=== PATIENT | female | born 1980 | race Hispanic/Latino ===

== ENCOUNTER 2018-04-14 22:26 | Inpatient (IN) | payer SELFPAY ==
[2018-04-14] MEDS ORDERED: NA CHLORIDE 0.9% 1,000 ML ONE (22:59)
[2018-04-14] MEDS ORDERED: FENTANYL CITR 100 MCG/2 ML ONE (23:21)
[2018-04-14 23:54] LABS: Absolute Lymphocytes (CBC) 0.5 K/uL (0.7-4.9); Absolute Monocytes 0.5 K/uL (0.1-1.3); Absolute Neutrophil 8.5 K/uL (1.8-8.0); Basophils % 0.5 % (0-1.3); Eosinophils % 1.3 % (0-4.4); Hematocrit 33.4 % (36.0-45.0); Lymphocytes % 5.1 % (15.3-44.8); MCV 88.4 fL (80-100); MPV 9.9 fL (7.6-11.3); Monocytes % 5.5 % (3.3-12.3); RBC Red Blood Cell Count 3.78 M/uL (3.86-4.86)
[2018-04-15] LABS: Potassium 4.5 mmol/L (3.5-5.1)
[2018-04-15 00:11] LABS: Urine Bacteria LOADED /HPF (<20); Urine Culture Reflex Order NOT NEEDED
[2018-04-15 00:12] LABS: Urine RBC <5 /HPF (NONE SEEN)
[2018-04-15] MEDS ORDERED: INSULIN -REGULAR HUMAN 50 UNIT/0.5 ML ML ONE (00:26)
[2018-04-15] MEDS ORDERED: CEFTRIAXONE/SWI 1gm 1 GM/10 ML SYR ONE (00:27)
[2018-04-15 00:29] LABS: Blood Morphology Comment NOT SEEN (NOT SEEN); Platelet Estimate ADEQ
[2018-04-15] MEDS ORDERED: NA CHLORIDE 0.9% 1,000 ML ONE (01:04)
[2018-04-15] MEDS ORDERED: ACETAMINOPHEN 500 MG TAB ONE (01:06)
--- NOTE | 2018-04-15 02:16 | ER ---
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 Transition of care: patient was not received from another setting of care. Onset of symptoms is unknown. Risk Assessment: Do you want to hurt yourself or someone else? Patient reports no desire to harm self or others. Initial Sepsis Screen:. Care prior to arrival: None. 22:50 Method Of Arrival: Wheelchair [facility] 22:50 Acuity: [facility] 04/15 01:06 Initial Sepsis Screen: Does the patient meet any 2 criteria? Temp <36.0*C (96.8*F)) or mg2 > 38.3*C (100.4*F). HR > 90 bpm. Yes Does the patient have a suspected source of infection? Yes: Dysuria/Frequency/Urgency/UTI. Triage Assessment: 04/14 22:51 General: Appears in no apparent distress. Behavior is calm, cooperative. ak1 04/15 01:08 Pain: Pain began gradually. mg2 01:11 Headache History: The patient has had previous headaches and this one is similar to mg2 previous episodes. Pain: Complains of pain in head, abdomen Also complains of no other associated symptoms. 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 - Social history:: Smoking status: Patient/guardian denies using tobacco. - Ebola Screening: : No symptoms or risks identified at this time. Screenin:06 Abuse screen: Denies threats or abuse. Denies injuries from another. Nutritional mg2 screening: No deficits noted. Tuberculosis screening: No symptoms or risk factors identified. Fall Risk IV access (20 points). Assessment: 22:50 General: Appears distressed, uncomfortable, well groomed, well developed, well tl3 nourished, Behavior is cooperative, appropriate for age, anxious. Pain: Complains of pain in right lower quadrant and left lower quadrant Pain at worst was 10 out of 10 on a pain scale. Neuro: Level of Consciousness is awake, alert, obeys commands, Oriented to person, place, time, situation, Appropriate for age. Cardiovascular: Heart tones S1 S2 present Patient's skin is warm and dry. Respiratory: Airway is patent Respiratory effort is even, unlabored, Respiratory pattern is regular, symmetrical, Breath sounds are clear bilaterally. GI: No signs and/or symptoms were reported involving the gastrointestinal system. : Bradley in place Urine is clear, Reports cramping, in bilateral lower quadrant(s) since 4 months. EENT: No signs and/or symptoms were reported regarding the EENT system. Derm: No signs and/or symptoms reported regarding the dermatologic system. Musculoskeletal: No signs and/or symptoms reported regarding the musculoskeletal system. 23:40 Reassessment: Patient appears in no apparent distress at this time. No changes from tl3 previously documented assessment. Patient and/or family updated on plan of care and expected duration. Pain level reassessed. Patient is alert, oriented x 3, equal unlabored respirations, skin warm/dry/pink. 04/15 00:36 Reassessment: Patient appears in no apparent distress at this time. No changes from tl3 previously documented assessment. Patient and/or family updated on plan of care and expected duration. Pain level reassessed. Patient is alert, oriented x 3, equal unlabored respirations, skin warm/dry/pink. 01:06 Reassessment: Patient appears in no apparent distress at this time. No changes from tl3 previously documented assessment. Patient and/or family updated on plan of care and expected duration. Pain level reassessed. Patient is alert, oriented x 3, equal unlabored respirations, skin warm/dry/pink. 02:06 Reassessment: Patient appears in no apparent distress at this time. Patient and/or mg2 family updated on plan of care and expected duration. Pain level reassessed. Patient is alert, oriented x 3, equal unlabored respirations, skin warm/dry/pink. Vital Signs: 04/14 22:49 BP 174 / 92; Pulse 123; Resp 16; Temp 100.2(O); Pulse Ox 98% on R/A; Weight 58.97 kg ak1 (R); Height 5 ft. 4 in. (162.56 cm); Pain 8/10; 23:40 BP 143 / 75; Pulse 122; Resp 18; Pulse Ox 96% ; tl3 04/15 00:36 BP 145 / 77; Pulse 119; Resp 18; Pulse Ox 95% ; tl3 01:05 Temp 100.4; tl3 01:06 BP 128 / 77; Pulse 119; Resp 16; Pulse Ox 98% ; tl3 02:05 BP 143 / 83; Pulse 116; Resp 18; Temp 100.4(O); Pulse Ox 96% ; Pain 5/10; mg2 04/14 22:49 Body Mass Index 22.31 (58.97 kg, 162.56 cm) ak1 ED Course: 04/14 22:29 Patient arrived in ED. do 22:49 Arm band placed on Patient placed in an exam room, on a stretcher, Patient notified of ak1 wait time. 22:50 Luna Díaz RN is Primary Nurse. tl3 22:50 Patient has correct armband on for positive identification. Bed in low position. Call tl3 light in reach. Side rails up X 1. Adult w/ patient. Pulse ox on. NIBP on. Warm blanket given. 22:50 No provider procedures requiring assistance completed. tl3 22:50 Straight cath inserted, using sterile technique, 8 fr pedi cath used Returned clear tl3 yellow urine. 22:51 Triage completed. ak1 22:51 Kenna Cary FNP-C is PHCP. snw 22:51 Madi Johnson MD is Attending Physician. snw 23:06 Inserted saline lock: 22 gauge by PAT Carrasco. mg2 04/15 00:29 Notified Nurse Practitioner and/or Physician Workplace Trainer And Assessor of a critical lab result(s), fc bands of 20%. 02:14 Adilene Saleem MD is Hospitalizing Provider. snw 02:47 Patient admitted, IV remains in place. mg2 Administered Medications: 04/14 23:07 Drug: NS 0.9% 1000 ml Route: IV; Rate: 1 bolus; Site: left antecubital; mg2 04/15 00:35 Follow up: IV Status: Completed infusion; IV Intake: 1000ml tl3 04/14 23:19 Drug: fentaNYL (PF) 25 mcg Route: IVP; Site: left antecubital; mg2 23:41 Follow up: Response: No adverse reaction; Pain is decreased tl3 04/15 00:26 Drug: Rocephin - (cefTRIAXone) 1 grams Route: IVPB; Infused Over: 5 mins; Site: left tl3 antecubital; Delivery: Primary tubing; 00:34 Follow up: IV Status: Completed infusion; IV Intake: 20ml tl3 00:32 Drug: Insulin Regular Human 5 units {Co-Signature: mg2 (Deni Bond RN).} Route: tl3 IVP; Site: left antecubital; 02:04 Follow up: Response: No adverse reaction; Blood sugar is lowered mg2 00:59 Drug: NS 0.9% 1000 ml Route: IV; Rate: 1 bolus; Site: left antecubital; Delivery: tl3 Primary tubing; 02:04 Follow up: Response: No adverse reaction; IV Status: Completed infusion mg2 01:06 Drug: Tylenol 1000 mg Route: PO; mg2 02:03 Follow up: Response: No adverse reaction; Temperature is unchanged mg2 02:26 Drug: morphine 2 mg Route: IVP; Site: left antecubital; mg2 02:48 Follow up: Response: No adverse reaction; Pain is decreased mg2 Point of Care Testing: Blood Glucose: 01:05 Blood Glucose: 357 mg/dL; tl3 02:05 Blood Glucose: 367 mg/dL; mg2 Ranges: Intake: 00:34 IV: 20ml; Total: 20ml. tl3 00:35 IV: 1000ml; Total: 1020ml. tl3 Outcome: 02:15 Decision to Hospitalize by Provider. snw 02:47 Admitted to Tele accompanied by nurse, via wheelchair, room 426, with chart, Report mg2 called to RN Glenys 02:47 Condition: stable 02:47 Instructed on the need for admit, Demonstrated understanding of instructions. 02:59 Patient left the ED. mg2 Signatures: Kenna Cary, MARINE RIGGER-C MARINE RIGGER-Csnw Isabel Caldera RN RN fc Krenek, Amber, RN RN [email or web address] Gemma Adams Tammy, RN RN tl3 Ronda, Deni, RN RN mg2 Deni Bond RN mg2
--- NOTE | 2018-04-15 02:16 | EDPHYS ---
Physician Documentation [facility] Name: Kacey Mcknight Age: 37 yrs Sex: Female : 1980 Arrival Date: 04/14/2018 Time: 22:29 Bed 23 Private MD: ED Physician Madi Johnson HPI: 04/14 23:26 This 37 yrs old Female presents to ER via Wheelchair with complaints of Fever, snw Headache, "Ovary Pain". 23:26 The patient reports fever, not measured (subjective). Onset: The symptoms/episode snw began/occurred suddenly, 3 day(s) ago. Modifying factors: there are no obvious modifying factors. Associated signs and symptoms: Pertinent positives: "ovary pain". Severity of symptoms: At their worst the symptoms were moderate 3 day(s) ago, in the emergency department the symptoms are unchanged. pt c/o ovarian pain x 4 months, saw PCP in [place] 2 months ago who recommended US, pt has not gotten one done. 2 months ago. 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 - Social history:: Smoking status: Patient/guardian denies using tobacco. - Ebola Screening: : No symptoms or risks identified at this time. ROS: 23:34 Eyes: Negative for injury, pain, redness, and discharge, ENT: Negative for injury, snw pain, and discharge, Neck: Negative for injury, pain, and swelling. 23:34 Respiratory: Negative for shortness of breath, cough, wheezing, and pleuritic chest pain, Abdomen/GI: Negative for abdominal pain, nausea, vomiting, diarrhea, and constipation, Back: Negative for injury and pain, : Negative for injury, bleeding, discharge, and swelling, MS/Extremity: Negative for injury and deformity, Skin: Negative for injury, rash, and discoloration, Neuro: Negative for weakness, numbness, tingling, and seizure, + headache 23:34 Constitutional: Positive for fever, malaise. 23:34 Cardiovascular: Positive for palpitations. Exam: 23:35 Head/Face: Normocephalic, atraumatic. Eyes: Pupils equal round and reactive to light, snw extra-ocular motions intact. Lids and lashes normal. Conjunctiva and sclera are non-icteric and not injected. Cornea within normal limits. Periorbital areas with no swelling, redness, or edema. ENT: Nares patent. No nasal discharge, no septal abnormalities noted. Tympanic membranes are normal and external auditory canals are clear. Oropharynx with no redness, swelling, or masses, exudates, or evidence of obstruction, uvula midline. Mucous membranes moist. Neck: Trachea midline, no thyromegaly or masses palpated, and no cervical lymphadenopathy. Supple, full range of motion without nuchal rigidity, or vertebral point tenderness. No Meningismus. Chest/axilla: Normal chest wall appearance and motion. Nontender with no deformity. No lesions are appreciated. 23:35 Respiratory: Lungs have equal breath sounds bilaterally, clear to auscultation and percussion. No rales, rhonchi or wheezes noted. No increased work of breathing, no retractions or nasal flaring. 23:35 Back: No spinal tenderness. No costovertebral tenderness. Full range of motion. Skin: Warm, dry with normal turgor. Normal color with no rashes, no lesions, and no evidence of cellulitis. MS/ Extremity: Pulses equal, no cyanosis. Neurovascular intact. Full, normal range of motion. Neuro: Awake and alert, GCS 15, oriented to person, place, time, and situation. Cranial nerves II-XII grossly intact. Motor strength 5/5 in all extremities. Sensory grossly intact. Cerebellar exam normal. Normal gait. Psych: Awake, alert, with orientation to person, place and time. Behavior, mood, and affect are within normal limits. 23:35 Constitutional: The patient appears alert, awake, anxious, uncomfortable. 23:35 Cardiovascular: Rate: tachycardic, Rhythm: regular, Heart sounds: normal. 23:35 Abdomen/GI: Inspection: abdomen appears normal, Bowel sounds: normal, Palpation: moderate abdominal tenderness, in the suprapubic area. Vital Signs: 22:49 BP 174 / 92; Pulse 123; Resp 16; Temp 100.2(O); Pulse Ox 98% on R/A; Weight 58.97 kg ak1 (R); Height 5 ft. 4 in. (162.56 cm); Pain 8/10; 23:40 BP 143 / 75; Pulse 122; Resp 18; Pulse Ox 96% ; tl3 04/15 00:36 BP 145 / 77; Pulse 119; Resp 18; Pulse Ox 95% ; tl3 01:05 Temp 100.4; tl3 01:06 BP 128 / 77; Pulse 119; Resp 16; Pulse Ox 98% ; tl3 02:05 BP 143 / 83; Pulse 116; Resp 18; Temp 100.4(O); Pulse Ox 96% ; Pain 5/10; mg2 04/14 22:49 Body Mass Index 22.31 (58.97 kg, 162.56 cm) ak1 MDM: 04/14 22:53 Patient medically screened. snw 23:36 Data reviewed: vital signs, nurses notes. Data interpreted: Pulse oximetry: on room air snw is 98 %. Interpretation: normal. Counseling: I had a detailed discussion with the patient and/or guardian regarding: the historical points, exam findings, and any diagnostic results supporting the discharge/admit diagnosis. 04/15 02:12 Response to treatment: the patient's symptoms have mildly improved after treatment, pt snw remains tachycardic post 2 liters of NS. Blood sugar elevated to 427, insulin given. Pt still c/o suprapubic pain. Dr. Saleem contacted for admission to hosp.. Physician consultation: Adilene Saleem MD was called at 02:14, was contacted at 02:14, regarding admission, to the medical/surgical unit. 04/14 22:52 Order name: Urine Microscopic Only; Complete Time: 00:12 snw 04/14 22:52 Order name: Urine Culture snw 04/14 22:52 Order name: CBC with Diff; Complete Time: 00:44 snw 04/14 22:52 Order name: Chem 7; Complete Time: 00:12 snw 04/14 22:52 Order name: Blood Culture* snw 04/14 23:59 Order name: Manual Differential; Complete Time: 00:44 EDMS 04/14 22:52 Order name: Cath; Complete Time: 23:57 snw Administered Medications: 04/14 23:07 Drug: NS 0.9% 1000 ml Route: IV; Rate: 1 bolus; Site: left antecubital; mg2 04/15 00:35 Follow up: IV Status: Completed infusion; IV Intake: 1000ml tl3 04/14 23:19 Drug: fentaNYL (PF) 25 mcg Route: IVP; Site: left antecubital; mg2 23:41 Follow up: Response: No adverse reaction; Pain is decreased tl3 04/15 00:26 Drug: Rocephin - (cefTRIAXone) 1 grams Route: IVPB; Infused Over: 5 mins; Site: left tl3 antecubital; Delivery: Primary tubing; 00:34 Follow up: IV Status: Completed infusion; IV Intake: 20ml tl3 00:32 Drug: Insulin Regular Human 5 units {Co-Signature: mg2 (Deni Bond RN).} Route: tl3 IVP; Site: left antecubital; 02:04 Follow up: Response: No adverse reaction; Blood sugar is lowered mg2 00:59 Drug: NS 0.9% 1000 ml Route: IV; Rate: 1 bolus; Site: left antecubital; Delivery: tl3 Primary tubing; 02:04 Follow up: Response: No adverse reaction; IV Status: Completed infusion mg2 01:06 Drug: Tylenol 1000 mg Route: PO; mg2 02:03 Follow up: Response: No adverse reaction; Temperature is unchanged mg2 02:26 Drug: morphine 2 mg Route: IVP; Site: left antecubital; mg2 02:48 Follow up: Response: No adverse reaction; Pain is decreased mg2 Point of Care Testing: Blood Glucose: 01:05 Blood Glucose: 357 mg/dL; tl3 02:05 Blood Glucose: 367 mg/dL; mg2 Ranges: Critical Glucose Levels:Adult <50 mg/dl or >400 mg/dl <40 mg/dl or >180 mg/dl Disposition: 04/15/18 02:15 Hospitalization ordered by Adilene Saleem for Observation. Preliminary diagnosis are Urinary tract infection, site not specified, Diabetes mellitus due to underlying condition with hyperglycemia. - Bed requested for Telemetry/MedSurg (observation). - Status is Observation. mg2 - Condition is Stable. - Problem is new. - Symptoms are unchanged. UTI on Admission? Yes Addendum: 04/19/2018 15:31 Co-signature as Attending Physician, Madi Johnson MD. g s Signatures: Dispatcher [employer] [facility] Ignacio Main rg2 Kenna Cary, EMBROIDERER HAND-C EMBROIDERER HAND-Csnw Zaria Balbuena, RN RN ak1 Madi Johnson MD MD gs Lowrey, Tammy, RN RN tl3 Deni Bond, RN RN mg2 Deni Bond RN mg2 Corrections: (The following items were deleted from the chart) 04/15 02:42 02:15 Hospitalization Ordered by Adilene Saleem MD for Observation. Preliminary rg2 diagnosis is Urinary tract infection, site not specified; Diabetes mellitus due to underlying condition with hyperglycemia. Bed requested for Telemetry/MedSurg (observation). Status is Observation. Condition is Stable. Problem is new. Symptoms are unchanged. UTI on Admission? Yes. snw 02:59 02:42 04/15/2018 02:15 Hospitalization Ordered by Adilene Saleem MD for Observation. mg2 Preliminary diagnosis is Urinary tract infection, site not specified; Diabetes mellitus due to underlying condition with hyperglycemia. Bed requested for Telemetry/MedSurg (observation). Status is Observation. Condition is Stable. Problem is new. Symptoms are unchanged. UTI on Admission? Yes. rg2
[2018-04-15] MEDS ORDERED: MORPHINE 4 MG/ML SYR ONE (02:28)
[2018-04-15] MEDS ORDERED: ONDANSETRON 4 MG/2 ML VIAL IV PRN (02:33)
[2018-04-15] MEDS ORDERED: MORPHINE 2 MG/ML SYR IV PRN (02:33)
[2018-04-15] MEDS: NA CHLORIDE 0.9% 1,000 ML IV SCH ×4 (03:15→22:49)
[2018-04-15 03:35] VITALS: BMI 22.3
--- NOTE | 2018-04-15 07:58 | P.HP ---
Certification for Inpatient Patient admitted to: Observation With expected LOS: <2 Midnights Patient will require the following post-hospital care: None Practitioner: I am a practitioner with admitting privileges, knowledge of patient current condition, hospital course, and medical plan of care. Services: Services provided to patient in accordance with Admission requirements found in Title 42 Section 412.3 of the Code of Federal Regulations Patient History Date of Service: 04/15/18 Reason for admission: tachycardia, UTI, poorly-controlled diabetes History of Present Illness: patient is a 37-year-old female who came into the hospital with poorly controlled diabetes and burning when she urinates. Patient was found to have a urinary tract infection. Her blood sugars were in the 4-500s. She has been admitted to our hospital with diabetic ketoacidosis in the past. It was concerning that her heart rate was staying in the 110s-120s. She was given multiple boluses and her heart rate was not coming down. I was notified by the emergency room today wanted to observe her overnight. Her urinary tract infection was more severe than they were thinking and she also had a significant bandemia. We went ahead and admitted her to the hospital for observation. Allergies No Known Allergies Allergy (Verified 04/15/18 03:05) Home Medications: Insulin 70/30 NPH/Reg Human [Novolin 70/30*] 20 unit SQ DAILY WITH BREAKFAST 10/19 - Past Medical/Surgical History Has patient received pneumonia vaccine in the past: No Diabetic: Yes -: Diabetes-IDDM -: depression -: migraines -: pancreas surgery -: cholecystectomy - Family History Mother Medical History: Hypertension Sister Medical History: Diabetes Notes: 2 sisters with DM - Social History Smoking Status: Never smoker Alcohol use: No CD- Drugs: No Caffeine use: Yes Place of Residence: Home Review of Systems 10-point ROS is otherwise unremarkable Physical Examination - Vital Signs Temperature: 97.6 F Blood Pressure: 116/66 Pulse: 107 Respirations: 18 Pulse Ox (%): 96 - Physical Exam General: Alert, In no apparent distress, Oriented x3 HEENT: Atraumatic, PERRLA, Mucous membr. moist/pink, EOMI, Sclerae nonicteric Neck: Supple, 2+ carotid pulse no bruit, No LAD, Without JVD or thyroid abnormality Respiratory: Clear to auscultation bilaterally, Normal air movement Cardiovascular: Regular rate/rhythm, Normal S1 S2 Gastrointestinal: Normal bowel sounds, No tenderness Musculoskeletal: No clubbing, No swelling, No tenderness Integumentary: No rashes Neurological: Normal gait, Normal speech, Normal strength at 5/5 x4 extr, Normal tone, Sensation intact, Cranial nerves 3-12 intact, Normal affect Lymphatics: No axilla or inguinal lymphadenopathy - Studies Laboratory Data (last 24 hrs) 04/14/18 23:10: Sodium 132 L, Potassium 4.5, BUN 23 H, Creatinine 1.10, Glucose 472 H* 04/14/18 23:10: WBC 9.7, Hgb 11.4 L, Hct 33.4 L, Plt Count 239 Assessment & Plan - Problems (Diagnosis) (1) Tachyarrhythmia Current Visit: Yes Status: Acute (2) Abdominal pain Onset Date: 06/03/17 Current Visit: No Status: Acute Qualifiers: (3) UTI (urinary tract infection) Onset Date: 06/03/17 Current Visit: No Status: Acute - Plan Plan: 1. Aggressive IV hydration 2. IV antibiotic therapy 3. Strict blood sugar control 4. Monitor electrolytes 5. Monitor hemodynamics closely. If blood pressure decreases may need to do septic protocol 6. GI DVT prophylaxis - Advance Directives Does patient have a Living Will: No Does patient have a Durable POA for Healthcare: No
[2018-04-15] MEDS: INSULIN -REGULAR HUMAN 50 UNIT/0.5 ML ML SQ SCH ×4 (08:24→21:31)
[2018-04-15] MEDS: INSULIN 70/30 100 UNITS/ML SQ SCH (08:25)
[2018-04-15] MEDS ORDERED: CEFTRIAXONE/SWI 1gm 1 GM/10 ML SYR IV SCH (09:00)
[2018-04-15] MEDS ORDERED: CEFTRIAXONE 1 GM/NS 50 ML 1 GM/50 ML BAG IV SCH (09:00)
[2018-04-15] MEDS: ACETAMINOPHEN 500 MG TAB PO PRN ×2 (16:08→21:30)
[2018-04-15] MEDS: levoFLOXacin 250 MG TAB PO SCH (17:39)
[2018-04-16] MEDS: ACETAMINOPHEN 500 MG TAB PO PRN ×2 (04:39→20:14)
[2018-04-16 05:43] LABS: Absolute Lymphocytes (CBC) 0.7 K/uL (0.7-4.9); Absolute Monocytes 0.7 K/uL (0.1-1.3); Basophils % 0.3 % (0-1.3); Eosinophils % 0.3 % (0-4.4); Hematocrit 27.3 % (36.0-45.0); Lymphocytes % 6.9 % (15.3-44.8); MCH 30.9 pg (27.0-35.0); MCV 88.4 fL (80-100); MPV 9.5 fL (7.6-11.3); Monocytes % 6.9 % (3.3-12.3); RBC Red Blood Cell Count 3.09 M/uL (3.86-4.86)
[2018-04-16 05:56] LABS: ALT/SGPT 111 U/L (12-78); AST/SGOT 149 U/L (15-37); Albumin 2.2 g/dL (3.4-5.0); Alkaline Phosphatase 172 U/L (45-117); BUN Blood Urea Nitrogen 16 mg/dL (7-18); Bicarbonate 21 mmol/L (21-32); Bilirubin Total 0.2 mg/dL (0.2-1.0); Glucose Level 265 mg/dL (74-106); Sodium Level 137 mmol/L (136-145)
[2018-04-16] MEDS: NA CHLORIDE 0.9% 1,000 ML IV SCH ×4 (06:38→20:14)
[2018-04-16] MEDS: INSULIN -REGULAR HUMAN 50 UNIT/0.5 ML ML SQ SCH ×4 (08:17→20:13)
[2018-04-16] MEDS: INSULIN 70/30 100 UNITS/ML SQ SCH (08:18)
--- NOTE | 2018-04-16 13:33 | P.PN ---
Subjective Date of Service: 04/16/18 Chief Complaint: tachycardia, UTI, poorly-controlled diabetes Subjective: No C/O voiced, Tolerating diet, Improving, Doing well Review of Systems General: As per HPI Physical Examination - Vital Signs Temperature: 98.7 F Blood Pressure: 149/79 Pulse: 103 Respirations: 18 Pulse Ox (%): 91 - Physical Exam General: Alert, In no apparent distress HEENT: Atraumatic, PERRLA, EOMI Neck: Supple, JVD not distended Respiratory: Clear to auscultation bilaterally, Normal air movement Cardiovascular: Regular rate/rhythm, Normal S1 S2 Gastrointestinal: Normal bowel sounds, No tenderness Musculoskeletal: No tenderness Integumentary: No rashes Neurological: Normal speech, Normal tone, Normal affect Lymphatics: No axilla or inguinal lymphadenopathy - Studies Medications List Reviewed: Yes Assessment & Plan - Problems (Diagnosis) (1) UTI (urinary tract infection) Onset Date: 04/16/18 Current Visit: Yes Status: Acute Plan: UA concerning for UTI -urine culture pending -IV levaquin for now -Will f.u with culture Qualifiers: Urinary tract infection type: acute cystitis Hematuria presence: without hematuria Qualified Code(s): N30.00 - Acute cystitis without hematuria (2) DMII (diabetes mellitus, type 2) Onset Date: 08/16/14 Current Visit: No Status: Chronic Qualifiers: 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
[2018-04-16] MEDS: levoFLOXacin 250 MG TAB PO SCH (17:30)
[2018-04-16 22:38] VITALS: O2SAT 95
[2018-04-17] MEDS: ACETAMINOPHEN 500 MG TAB PO PRN (03:55)
[2018-04-17] MEDS: INSULIN -REGULAR HUMAN 50 UNIT/0.5 ML ML SQ SCH ×2 (08:40→12:18)
[2018-04-17] MEDS: INSULIN 70/30 100 UNITS/ML SQ SCH (08:40)
[2018-04-17 12:09] VITALS: TEMP 98
--- NOTE | 2018-04-17 13:41 | P.DS ---
Admission Date: 04/15/18 Discharge Date: 04/17/18 Disposition: ROUTINE DISCHARGE Discharge Condition: GOOD Reason for Admission: tachycardia, UTI, poorly-controlled diabetes - Problems (1) UTI (urinary tract infection) Onset Date: 04/16/18 Current Visit: Yes Status: Acute Qualifiers: Urinary tract infection type: acute cystitis Hematuria presence: without hematuria Qualified Code(s): N30.00 - Acute cystitis without hematuria (2) DMII (diabetes mellitus, type 2) Onset Date: 08/16/14 Current Visit: No Status: Chronic Qualifiers: Diabetes mellitus care home insulin use: unspecified care home insulin use status Diabetes mellitus complication status: with hyperglycemia Qualified Code(s): E11.65 - Type 2 diabetes mellitus with hyperglycemia (3) HTN (hypertension) Onset Date: 08/16/14 Current Visit: No Status: Chronic Qualifiers: Hypertension type: essential hypertension Qualified Code(s): I10 - Essential (primary) hypertension Hospital Course: Overall during the hospital stay patient remained stable Patient was initially admitted to the hospital for sepsis most likely secondary to urinary tract infection positive for Klebsiella sensitive to p.o. medication. Initially patient was started on IV antibiotics and was switched over to p.o. Levaquin on discharge due to being positive for Klebsiella sensitive to Levaquin. Patient was asked to follow up with her primary care provider and have a better control of her diabetes which might be causing her recurrent urinary tract infection. Patient demonstrated understanding and thus was discharged home under stable condition. Patient was also given a new appointment with coding educator to discuss diet and exercise to help control her diabetes. Vital Signs/Physical Exam: Temp Pulse Resp BP Pulse Ox 98.0 F 97 H 18 177/90 H 97 04/17/18 12:00 04/17/18 12:00 04/17/18 12:00 04/17/18 12:04/17/18 12:00 General: Alert, In no apparent distress HEENT: Atraumatic, PERRLA, EOMI Neck: Supple, JVD not distended Respiratory: Clear to auscultation bilaterally, Normal air movement Cardiovascular: Regular rate/rhythm, Normal S1 S2 Gastrointestinal: Normal bowel sounds, No tenderness Musculoskeletal: No tenderness Integumentary: No rashes Neurological: Normal speech, Normal tone, Normal affect Lymphatics: No axilla or inguinal lymphadenopathy Laboratory Data at Discharge: WBC 10.5 K/uL (4.3-10.9) 04/16/18 05:23 Hgb 9.5 g/dL (12.0-15.0) L 04/16/18 05:23 Hct 27.3 % (36.0-45.0) L D 04/16/18 05:23 Plt Count 184 K/uL (152-406) D 04/16/18 05:23 Sodium 137 mmol/L (136-145) 04/16/18 05:23 Potassium 4.0 mmol/L (3.5-5.1) 04/16/18 05:23 BUN 16 mg/dL (7-18) 04/16/18 05:23 Creatinine 0.70 mg/dL (0.55-1.3) 04/16/18 05:23 Glucose 265 mg/dL (74-106) H 04/16/18 05:23 Total Bilirubin 0.2 mg/dL (0.2-1.0) 04/16/18 05:23 AST 149 U/L (15-37) H 04/16/18 05:23 ALT 111 U/L (12-78) H 04/16/18 05:23 Alkaline Phosphatase 172 U/L (45-117) H 04/16/18 05:23 Home Medications: Insulin 70/30 NPH/Reg Human [Novolin 70/30*] 20 unit SQ DAILY WITH BREAKFAST 10/19 levoFLOXacin [Levaquin] 500 mg PO DAILY #14 tab 04/17/18 New Medications: levoFLOXacin [Levaquin] 500 mg PO DAILY #14 tab Patient Discharge Instructions: Please f.u with PCP in 1 to 2 week post dischargbe. New medication. Levaquin 500mg Daily for 14 days Diet: Regular Activity: Ad wilma
[2018-04-17 15:24] VITALS: BP 155/73
== END 2018-04-17 14:16 | disposition home or self-care (01) | DRG 872 ==
LOC: ER 22:26 → ERHOLD 04-15 02:17 → 4TH 04-15 02:48 → OBSVTOIN 04-15 13:32
PROVIDERS: ADMIT Hospitalist; ATTEND Family Medicine
DX: A41.9 Sepsis, unspecified organism (principal); N30.00 Acute cystitis without hematuria; E11.65 Type 2 diabetes mellitus with hyperglycemia; R00.0 Tachycardia, unspecified; I10 Essential (primary) hypertension; B96.1 Klebsiella pneumoniae [K. pneumoniae] as the cause of diseases classified elsewhere; Z79.4 Long term (current) use of insulin
CPT/HCPCS: 36415; 51702; 80048; 80053; 81015; 82962; 85025; 87040; 87077; 87086; 87088; 87186; 96361; 96374; 96375; 99285; G0378; J0696; J2270; J2405; J3010; J7030